=== PATIENT | female | born 1960 | race Two or more races ===

== ENCOUNTER 2023-01-15 07:54 | Outpatient (CLI) | payer OTHER | END 2023-01-15 08:10 | disposition home or self-care (01) | LOC: RAD 07:54 | PROVIDERS: ATTEND Surgery | DX: E21.0 Primary hyperparathyroidism (principal) ==

== ENCOUNTER 2023-01-22 06:52 | Day surgery (SDC) | payer OTHER ==
[~2023-01-22] VITALS: Ht 165.1 cm; Wt 59.9 kg
[~2023-01-22 06:52] MED LIST: ATORVAST PO; BAYER THERAPY325 MG PO; GLUMETZA500 MG PO; LISINO
[2023-01-22] MEDS ORDERED: PERCOCET 5-3251 EACH PO (12:50)
== END 2023-01-22 16:40 | disposition home or self-care (01) ==
LOC: CIR.AMB 06:52 → EDBD 10:15 → CIR.AMB 11:30
PROVIDERS: ATTEND Surgery
DX: D35.1 Benign neoplasm of parathyroid gland (principal); E21.0 Primary hyperparathyroidism; Z20.822 Contact with and (suspected) exposure to COVID-19; E11.9 Type 2 diabetes mellitus without complications; E78.5 Hyperlipidemia, unspecified